=== PATIENT | female | born 1990 | race Caucasian/White ===

== ENCOUNTER 2019-03-10 11:48 | Day surgery (SDC) | payer OTHER ==
[2019-03-09 08:54] VITALS: BMI 29.1
[~2019-03-10 11:48] MED LIST: ceFAZolin IN SWFI 2 GM/20 ML SYRINGE IVP ONE
[2019-03-10] MEDS ORDERED: LACTATED RINGERS 1,000 ML IV ONE (12:26)
[2019-03-10] MEDS ORDERED: LIDOCAINE 1% 20 ML VIAL (10MG/ML) FOR IV START INTRADERMA ONE (12:26)
[2019-03-10] MEDS ORDERED: DEXAMETHASONE SOD PHOSPHATE 10 MG/ML 1 ML VIAL IV ONE (12:30)
[2019-03-10] MEDS: ONDANSETRON 4 MG/2 ML VIAL IVP ONE ×2 (12:30→15:52)
[2019-03-10] MEDS ORDERED: HYDROmorphone (PF) 1 MG/ML ONE (12:42)
[2019-03-10] MEDS ORDERED: MIDAZOLAM 2 MG/2 ML VIAL ONE (12:42)
[2019-03-10] MEDS ORDERED: fentaNYL (PF) 50 MCG/ML 2 ML AMP ONE (12:42)
[2019-03-10] MEDS ORDERED: LIDOCAINE 1% INJ 10MG/ML (20 ML MDV) ONE (12:42)
[2019-03-10] MEDS ORDERED: PROPOFOL 10 MG/ML 20 ML VIAL IV ONE (12:42)
[2019-03-10] MEDS ORDERED: BUPIVACAINE (PF) 0.5% 30 ML VIAL SQ ONE ×2 (13:08→14:27)
--- NOTE | 2019-03-10 14:51 | P.PCN ---
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
[2019-03-10 14:56] VITALS: TEMP 97.3
--- NOTE | 2019-03-10 14:59 | P.OP ---
Date of Procedure: 03/10/19 Preoperative Diagnosis: Hallux abductovalgus deformity with metatarsus primus varus Postoperative Diagnosis: Same Procedure(s) Performed: Modified Price Chan bunionectomy left foot with base wedge osteotomy and pin fixation left foot Anesthesia: AGUSTIN Surgeon: Renard Bolanos Operative Findings: Unremarkable Description of Procedure: On the date of surgery the patient was taken to the operating room placed on the operating table supine position where general anesthetic agents were utilized to achieve anesthesia The patient's left foot and ankle were then prepped and draped in the usual aseptic manner Patient's left ankle was then wrapped with web roll and an ankle tourniquet was placed above the malleoli of the patient's left ankle The patient's left foot and ankle were elevated and exsanguinated of blood utilizing an Esmarch bandage and after 2 minutes. A time the ankle tourniquet was inflated to approximately 275 mmHg At this time attention was directed to the dorsal aspect of the first metatarsal base and cuneiform joint, where an approximately 9 cm dorsolinear incision was made area the incision was deepened via sharp dissection down through the level subcutaneous tissue layers all neurovascular structures encountered were identified isolated and were retracted and any bleeding vessels were clamped electrocauterized dissection was then carried deep down to level Periosteal Structures Overlying the Base of the First Metatarsal These Were Incised in Line with the Shaft of the First Metatarsal Just Lateral to the Extensor Hallucis Longus Tendon Periosteal Structures Were Then Reflected Medially a Were Underscored and Retracted from the Underlying Bone Oscillating Bone Saw Was Then Used To Create a Base Osteotomy the [place] of the Base Was Directed Medially Base of the Wedge Was Directed Laterally As Widest Point the Base of the Wedge Measured 2-3 Mm the Encompass Wedge of Bone Was Removed in Total from the Surgical Site Care Was Taken to Make the Osteotomy As Perpendicular to the Weightbearing Surface As Possible. 2 Crossing 0.062 K Wires Were Then Used To Fixate the Osteotomy Attension Was Then Directed to the Distal More Aspect of the Incision Where Dissection Was Carried Deep down to Level Periosteal Structures Overlying the First Metatarsal Phalangeal Joint These Were Incised Utilizing an Inverted L Incision and Underscored and Retracted from the Underlying Bone Hyperostosis Present on the Medial Side of the First Metatarsal Head Was Then Resected Flush in Line with the Shaft of the First Metatarsal and Removed in Total from the Surgical Site the Parosteal Structures were Then Dissected Free from the Base of the Proximal Phalanx and Underscored and Retracted from the Underlying Bone Wedge Osteotomy Was Performed so That the Base of the Wedge Was Directed Laterally Though Care Was Taken Not to Disrupt the Lateral Cortex of Proximal Phalanx the Base of the Wedge Was Directed Medially the Encompass Wedge of Bone Was Removed from Total from the Surgical Site to Surgical Drill Holes Were Then Fashioned on Either Side of the Osteotomy in Such a Manner That They Met with Then the Osteotomy Was Then Fixated Utilizing Double Strength 28-gauge Monofilament Stainless Steel Wire. Her out the Surgical Procedure Copious Amounts Sterile Saline Solution Was Used To Irrigate the Surgical Site. Tendon Capsule Was Then Resected from the Medial Side of the First Metatarsal Phalangeal Joint and a Lateral Capsulotomy Was Performed. Dissecting down along the Lateral Side of the First Metatarsal Phalangeal Joint. And Opening the Lateral Side of the Joint and Completion of These Procedures the Hallux Was Seen to Maintain a Rectus Position Periosteal Structures Were Then Coaptated and Maintained Utilizing 3 2-0 Vicryl Simple Interrupted Suture. Subcutaneous Tissue Layers Were Coaptated and Maintained Utilizing 3-0 Vicryl Simple Interrupted Suture and the Skin Was Closed Utilizing 4-0 Nylon Continuous Locking Suture. Adaptic Kerlix Fluffs Four-Inch Conformer 4 Inch Coban Was Used To Form a Compression Dressing and the Ankle Tourniquet to the Patient's Right Ankle Was Deflated Adequate Hemostatic Return Was Seen in All Digits the Patient's Right Foot Specifically the Right Hallux The Patient Tolerated the Surgery and Anesthesia Well Was Taken Recovery Room in Good Postoperative Condition.
[2019-03-10 15:03] VITALS: RESP 16
[2019-03-10 16:06] VITALS: BP 92/60; PULSE 58
== END 2019-03-10 16:21 | disposition home or self-care (01) ==
LOC: OR 11:48
PROVIDERS: ATTEND Podiatrist Foot & Ankle Surgery
DX: M20.12 Hallux valgus (acquired), left foot (principal); M21.172 Varus deformity, not elsewhere classified, left ankle
CPT/HCPCS: 81025; 28299; C1713; J2250; J1100; J2405; J2001; J3010; J1170; J2704; J0690

== ENCOUNTER 2020-02-21 14:20 | Observation (INO) | payer OTHER ==
[2020-02-21] MEDS ORDERED: SODIUM CHLORIDE 0.9% 500 ML 500 ML IV ONE (14:25)
[2020-02-21] MEDS ORDERED: HYDROmorphone 0.5 MG/0.5 ML SYRINGE IVP STA ×2 (14:25→15:43)
--- NOTE | 2020-02-21 14:28 | ED ---
Back Pain HPI - General Stated Complaint: Back pain Time Seen by Provider: 02/21/20 14:25 - History of Present Illness Initial Comments: 29-year-old female presenting today for chief complaint of low back pain. Patient states she has had issues with her sciatic nerve in the past. Patient states that she was getting ready for work today. On her pants and she felt like she moved wrong she felt sudden onset of right-sided low back pain. Patient states at times it radiates down the right leg. Denies loss of bowel or bladder control, denies urinary retention. Patient denies weakness of the LE but states it is very pain in the low right side of back with movement of the right leg. Patient states that any movement significantly increases the pain. Patient denies fevers, IVDU, or history of cancer, Denies any recent trauma injury or falls. Patient has no other complaints at this time. Patient could no ambulate and thus called EMS. EMS has given IV analgesics prior to arrival. Patient cries out in pain when moved off stretcher. - Related Data Home Medications Medication Instructions Recorded Confirmed Naproxen Sodium [Aleve] 440 mg PO Q8H PRN 02/21/20 02/21/20 Allergies Allergy/AdvReac Type Severity Reaction Status Date / Time No Known Allergies Allergy Verified 02/21/20 17:12 Review of Systems ROS Statement: Those systems with pertinent positive or pertinent negative responses have been documented in the HPI. ROS Other: All systems not noted in ROS Statement are negative. Past Medical History Past Medical History: No Reported History History of Any Multi-Drug Resistant Organisms: None Reported Past Surgical History: Tubal Ligation Additional Past Surgical History / Comment(s): D&C-2010. Colonoscopy Past Anesthesia/Blood Transfusion Reactions: Postoperative Nausea & Vomiting (PONV) Smoking Status: Never smoker - Past Family History Mother Family Medical History: No Reported History General Exam - General Exam Comments Initial Comments: General: The patient is awake and alert Eye: Pupils are equal, round and reactive to light, extra-ocular movements are intact. No nystagmus. There is normal conjunctiva bilaterally. No signs of icterus. Ears, nose, mouth and throat: There are moist mucous membranes and no oral lesions. Neck: The neck is supple, there is no tenderness or JVD. Cardiovascular: There is a regular rate and rhythm. No murmur, rub or gallop is appreciated. Respiratory: Lungs are clear to auscultation, respirations are non-labored, breath sounds are equal. No wheezes, stridor, rales, or rhonchi. Gastrointestinal: Soft, non-distended, non-tender abdomen without masses or organomegaly noted. There is no rebound or guarding present. No CVA tenderness. Musculoskeletal: Normal inspection of the thoracic, and lumbar spine, hips and buttocks. Patient refused to full range at right LE secondary to pain, + SLR. STrength appears preserved, and plantar and dorsiflex wtih full strength. S ensation intact of the LE b/l including the saddle region, and perineal region. NII performed wtih nurse Marcela at beside--normal sphinctor tone. DP Pulses equal bilaterally 2+. +2/5 Achilles and patellar reflexes. Neurological: A&O x 3. CN II-XII intact grossly, There are no obvious motor or sensory deficits. Coordination appears grossly intact. Speech is normal. Skin: Skin is warm and dry and no rashes or lesions are noted. Psychiatric: Cooperative, crying Course Vital Signs 02/21/20 02/21/20 14:25 17:18 Temperature 98.8 F Pulse Rate 86 88 Respiratory 18 18 Rate Blood Pressure 141/93 136/70 O2 Sat by Pulse 99 99 Oximetry - Reevaluation(s) Reevaluation #1: Urinated without difficulty-- 02/21/20 Medical Decision Making - Medical Decision Making 29-year-old feel presented for chief complaint of low back pain after moving around. Patient states it feels like a spasm. Patient has positive straight leg raise. Patient denies IV drug use no fevers. No direct trauma. Patient has full strength with plantar and dorsal flexion, refuses to full range at hip and knee but states she thinks the limb feels strong it just hurts. Patient sensation in table equal b/l. Urinating without difficulty. Patient has no perineal numbness, normal rectal tone. Patient pain improved as well as movement/strength with medications, Patient states she will not ambulate secondary to pain and is concerned when going home as she already has issues ambulating secondary to her previous left ankle surgery/injury. Patient will be admitted for intractable pain as well as monitoring for any worsening of symptoms. No signs of cauda equina at this time. Patient case, exam findings, CT findings all reviewed and discussed wtih Dr. Richards who recommends admission, steroids and IV analgesics. Dr. Garcia accepted admission requesting MRI, and discussion with consulting orthopedic spine physician Dr. Gomez--I discussed case in detail with Dr Streeter who is agreeable to admission with nonurgent MRI and pain control. - Lab Data Result diagrams: 02/21/20 14:44 02/21/20 14:44 Lab Results 02/21/20 02/21/20 02/21/20 Range/Units 14:44 14:44 14:50 WBC 13.8 H (3.8-10.6) k/uL RBC 4.74 (3.80-5.40) m/uL Hgb 14.4 (11.4-16.0) gm/dL Hct 42.7 (34.0-46.0) % MCV 90.1 (80.0-100.0) fL MCH 30.3 (25.0-35.0) pg MCHC 33.6 (31.0-37.0) g/dL RDW 12.8 (11.5-15.5) % Plt Count 337 (150-450) k/uL Neutrophils % 91 % Lymphocytes % 6 % Monocytes % 2 % Eosinophils % 0 % Basophils % 0 % Neutrophils # 12.6 H (1.3-7.7) k/uL Lymphocytes # 0.8 L (1.0-4.8) k/uL Monocytes # 0.3 (0-1.0) k/uL Eosinophils # 0.1 (0-0.7) k/uL Basophils # 0.0 (0-0.2) k/uL Sodium 137 (137-145) mmol/L Potassium 4.3 (3.5-5.1) mmol/L Chloride 103 (98-107) mmol/L Carbon Dioxide 25 (22-30) mmol/L Anion Gap 9 mmol/L BUN 14 (7-17) mg/dL Creatinine 0.52 (0.52-1.04) mg/dL Est GFR (CKD-EPI)AfAm >90 (>60 ml/min/1.73 sqM) Est GFR (CKD-EPI)NonAf >90 (>60 ml/min/1.73 sqM) Glucose 120 H (74-99) mg/dL Calcium 9.3 (8.4-10.2) mg/dL Total Bilirubin 0.5 (0.2-1.3) mg/dL AST 24 (14-36) U/L ALT 16 (4-34) U/L Alkaline Phosphatase 83 (38-126) U/L C-Reactive Protein 8.3 (<10.0) mg/L Total Protein 7.8 (6.3-8.2) g/dL Albumin 4.5 (3.5-5.0) g/dL Urine Color Light Yellow Urine Appearance Clear (Clear) Urine pH 7.0 (5.0-8.0) Ur Specific [place] 1.015 (1.001-1.035) Urine Protein Negative (Negative) Urine Glucose (UA) Negative (Negative) Urine Ketones Negative (Negative) Urine Blood Negative (Negative) Urine Nitrite Negative (Negative) Urine Bilirubin Negative (Negative) Urine Urobilinogen <2.0 (<2.0) mg/dL Ur Leukocyte Esterase Negative (Negative) Urine HCG, Qual (Not Detectd) 02/21/20 Range/Units 14:50 WBC (3.8-10.6) k/uL RBC (3.80-5.40) m/uL Hgb (11.4-16.0) gm/dL Hct (34.0-46.0) % MCV (80.0-100.0) fL MCH (25.0-35.0) pg MCHC (31.0-37.0) g/dL RDW (11.5-15.5) % Plt Count (150-450) k/uL Neutrophils % % Lymphocytes % % Monocytes % % Eosinophils % % Basophils % % Neutrophils # (1.3-7.7) k/uL Lymphocytes # (1.0-4.8) k/uL Monocytes # (0-1.0) k/uL Eosinophils # (0-0.7) k/uL Basophils # (0-0.2) k/uL Sodium (137-145) mmol/L Potassium (3.5-5.1) mmol/L Chloride (98-107) mmol/L Carbon Dioxide (22-30) mmol/L Anion Gap mmol/L BUN (7-17) mg/dL Creatinine (0.52-1.04) mg/dL Est GFR (CKD-EPI)AfAm (>60 ml/min/1.73 sqM) Est GFR (CKD-EPI)NonAf (>60 ml/min/1.73 sqM) Glucose (74-99) mg/dL Calcium (8.4-10.2) mg/dL Total Bilirubin (0.2-1.3) mg/dL AST (14-36) U/L ALT (4-34) U/L Alkaline Phosphatase (38-126) U/L C-Reactive Protein (<10.0) mg/L Total Protein (6.3-8.2) g/dL Albumin (3.5-5.0) g/dL Urine Color Urine Appearance (Clear) Urine pH (5.0-8.0) Ur Specific [place] (1.001-1.035) Urine Protein (Negative) Urine Glucose (UA) (Negative) Urine Ketones (Negative) Urine Blood (Negative) Urine Nitrite (Negative) Urine Bilirubin (Negative) Urine Urobilinogen (<2.0) mg/dL Ur Leukocyte Esterase (Negative) Urine HCG, Qual Not Detected (Not Detectd) Disposition Clinical Impression: Low back pain, Gall stone, Intractable back pain Disposition: ADMITTED IP TO THIS [facility] Condition: Stable Is patient prescribed a controlled substance at d/c from ED?: No Referrals: Enrique Queen MD [Primary Care Provider] - 1-2 days Time of Disposition: 16:59 Decision to Admit Reason: Admit from EC Decision Date: 02/21/20 Decision Time: 16:59
[2020-02-21 15:03] LABS: Basophils % (A) 0 %; Eosinophils # (A) 0.1 k/uL (0-0.7); Eosinophils % (A) 0 %; HCT 42.7 % (34.0-46.0); HGB 14.4 gm/dL (11.4-16.0); Lymphocytes # (A) 0.8 k/uL (1.0-4.8); Lymphocytes % (A) 6 %; MCH 30.3 pg (25.0-35.0); MCHC 33.6 g/dL (31.0-37.0); MCV 90.1 fL (80.0-100.0); Mean Platelet Volume 7.7; Monocytes # (A) 0.3 k/uL (0-1.0); Monocytes % (A) 2 %; Neutrophils # (A) 12.6 k/uL (1.3-7.7); Neutrophils % (A) 91 %; Platelet Count 337 k/uL (150-450); RBC 4.74 m/uL (3.80-5.40); RDW 12.8 % (11.5-15.5); WBC 13.8 k/uL (3.8-10.6)
[2020-02-21 15:04] LABS: Appearance,Urine Clear (Clear); Bilirubin,Urine Negative (Negative); Blood,Urine Negative (Negative); Color,Urine Light Yellow; Glucose,Urine (UA) Negative (Negative); Ketones,Urine Negative (Negative); Leukocyte Esterase,Urine Negative (Negative); Nitrite,Urine Negative (Negative); Protein,Urine Negative (Negative); Specific Gravity,Urine 1.015 (1.001-1.035); Urobilinogen,Urine <2.0 mg/dL (<2.0)
[2020-02-21 15:17] LABS: ALT 16 U/L (4-34); AST 24 U/L (14-36); African American GFR (CKD) >90 (>60 ml/min/1.73 sqM); Albumin 4.5 g/dL (3.5-5.0); Alkaline Phosphatase 83 U/L (38-126); Anion Gap 9 mmol/L; Blood Urea Nitrogen 14 mg/dL (7-17); C Reactive Protein 8.3 mg/L (<10.0); Calcium 9.3 mg/dL (8.4-10.2); Carbon Dioxide 25 mmol/L (22-30); Chloride 103 mmol/L (98-107); Glucose 120 mg/dL (74-99); Non-African American GFR(CKD) >90 (>60 ml/min/1.73 sqM); Potassium 4.3 mmol/L (3.5-5.1); Sodium 137 mmol/L (137-145); Total Bilirubin 0.5 mg/dL (0.2-1.3); Total Protein 7.8 g/dL (6.3-8.2)
--- NOTE | 2020-02-21 15:28 | CT ---
EXAMINATION TYPE: CT lumbar spine wo con DATE OF EXAM: 02/21/2020 3:21 PM COMPARISON: None. HISTORY: low back pain with no injury CT DLP: 925.4 mGycm Automated exposure control for dose reduction was used. Unenhanced CT of the lumbar spine was performed. Bone and soft tissue window settings are submitted as well as coronal and sagittal reconstructions. There are 5 lumbar type vertebra identified. Mild to moderate disc space narrowing L4-L5 level is pre sent. Vertebral body heights and disc space heights otherwise fairly well maintained. No acute fractu re or dislocation is seen. Posterior disc herniations noted at L2-L3 through L5-S1 levels on sagittal image 27. Bilateral pars defect L5 level without spondylolisthesis. Review of axial images confirm central disc protrusion effacing anterior thecal sac at L2-L3 level ax ial image 40. Axial images at L3-L4 levels show mild broad disc bulge mildly effacing the anterior thecal sac on ax ial image 53. Axial images at L4-L5 level show mild facet degenerative changes bilaterally with central disc protru leida mildly facing anterior thecal sac, bilateral neural foramina are patent. Axial images at L5-S1 level show mild facet arthropathy and bilateral pars defect but spinal canal pr eserved. Neural foramina remain patent. Paraspinal muscle bulk is maintained. There is 2 cm gallstone in gallbladder neck axial image 13. 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 Multilevel degenerative changes mid to lower lumbar spine as detailed above. Note is made of 2.0 cm gallstone in gallbladder neck .
[2020-02-21] MEDS ORDERED: KETOROLAC 30 MG/ML 1 ML VIAL IVP STA (15:44)
[2020-02-21] MEDS ORDERED: DEXAMETHASONE SOD PHOSPHATE 4 MG/ML 1 ML VIAL IV STA (15:45)
[2020-02-21] MEDS ORDERED: ONDANSETRON 4 MG/2 ML VIAL IVP STA (16:12)
[2020-02-21] MEDS ORDERED: CYCLOBENZAPRINE 5 MG TAB PO STA (16:59)
[2020-02-21] MEDS ORDERED: NALOXONE 0.4 MG/ML 1 ML VIAL IV PRN (17:39)
[2020-02-21] MEDS: HYDROmorphone 0.5 MG/0.5 ML SYRINGE IVP PRN (22:20)
[2020-02-22] MEDS: HYDROmorphone 0.5 MG/0.5 ML SYRINGE IVP PRN ×2 (03:27→12:33)
--- NOTE | 2020-02-22 11:18 | MR ---
EXAMINATION TYPE: MR lumbar spine wo con DATE OF EXAM: 02/22/2020 COMPARISON: CT lumbar spine from yesterday. HISTORY: Right sided Lower Back Pain, Goes into Right Leg. Ambulating aggravates it. TECHNIQUE: Multiplanar, multisequence imaging of the lumbar spine is performed without IV contrast. FINDINGS: Sagittal images of the lumbar spine show vertebral body heights and alignment to remain sat isfactory. Multilevel disc desiccation L2-L3 through the L5-S1 levels. There is moderate disc space n arrowing L4-L5 level with posterior annular tear. The conus medullaris is normal in position and sign al ending mid L1 level. The bone marrow signal intensity is within normal limits. Bilateral pars def ect L5 level seen better on CT versus MRI. Axial images show the T12-L1 and L1-L2 levels. Axial images at L2-L3 level show focal broad-based right paracentral disc protrusion effacing the ant erolateral thecal sac axial image 19, bilateral neural foramina are patent. Axial images at L3-L4 level broad-based central disc protrusion effacing anterior thecal sac seen bes t on axial image 13, bilateral neural foramina are patent. Axial images at L4-L5 levels are broad-based left central disc protrusion and annular tear effacing t he anterior thecal sac, bilateral neural foramina remain patent. Mild facet arthropathy bilaterally r edemonstrated. Axial images at L5-S1 level redemonstrated mild facet degenerative changes bilaterally with central d isc protrusion minimally effacing anterior thecal sac, bilateral neural foramina remain patent. Paraspinal muscle bulk preserved. Redemonstration of 2.0 cm gallstone in gallbladder neck axial image 30. IMPRESSION: Multilevel degenerative changes in the mid to lower lumbar spine as detailed above. Multi level disc herniations are seen but no definitive right-sided nerve encroachment identified to accoun t for patient's right-sided radiculopathy type symptoms
--- NOTE | 2020-02-22 11:54 | XR ---
EXAMINATION TYPE: XR lumbar spine with bend/flex DATE OF EXAM: 02/22/2020 COMPARISON: MRI lumbar spine 02/22/2020, CT 02/21/2020 HISTORY: Low back pain TECHNIQUE: Five-view lumbar spine supplemented with flexion and extension views. FINDINGS: There 5 lumbar-type vertebral bodies. Pedicles are intact. Disc heights are preserved. Vert ebral body heights are preserved. Facets appear normal. There is suggestion of L5 spondylolysis. This is evident on the CT lumbar spine 02/21/2020 Flexion and extension appears limited. No alignment change is evident between vertebral segments. IMPRESSION: 1. No significant alignment change of vertebral bodies with flexion and extension. 2. Spondylolysis of L5.
[2020-02-22] MEDS ORDERED: NAPROXEN 250 MG TAB PO STA (13:58)
[2020-02-22] MEDS: predniSONE 20 MG TAB PO SCH (14:18)
[2020-02-22] MEDS: BACLOFEN 10 MG TAB PO SCH ×3 (14:20→22:11)
--- NOTE | 2020-02-22 14:52 | P.CNOR ---
History of Present Illness - HPI Consult date: 02/22/20 Consult reason: low back pain History of present illness: Patient has been having severe low back pain since yesterday. She was bending over and putting on her pants when she felt a sudden sharp stabbing pain in her low back and tingling down her right leg. 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 She says she has not had any specific back pain in the past however she did have her back when she was with her daughter 8 years ago. She is not having problems with her back since then. She denies any specific weakness in her lower extr emities. She says she has significant pain when she tries to get up and feels like her back is crunching down. She denies any change in bowel bladder function. She denies note weakness. She has pain which prevents her from moving. Review of Systems As stated per HPI. No change in bowel bladder function. No reported weakness in her lower extremity. No recent fevers chills. Past Medical History Past Medical History: No Reported History, Musculoskeletal Disorder Additional Past Medical History / Comment(s): Patient had bunionectomy in March of last year History of Any Multi-Drug Resistant Organisms: None Reported Past Surgical History: Tubal Ligation Additional Past Surgical History / Comment(s): D&C-2010 after septicemia post- . Colonoscopy Past Anesthesia/Blood Transfusion Reactions: No Reported Reaction, Postoperative Nausea & Vomiting (PONV) Additional Past Anesthesia/Blood Transfusion Reaction / Comm: Patient believes she had transfusion after post- bleeding Past Psychological History: No Psychological Hx Reported Smoking Status: Never smoker Past Alcohol Use History: Occasional Past Drug Use History: None Reported - Past Family History Mother Family Medical History: No Reported History Medications and Allergies Home Medications Medication Instructions Recorded Confirmed Type Naproxen Sodium [Aleve] 440 mg PO Q8H PRN 02/21/20 02/21/20 History Famotidine [Pepcid] 20 mg PO DAILY #12 tablet 02/22/20 Rx predniSONE 10 mg PO DIRECTED #24 tab 02/22/20 Rx Allergies Allergy/AdvReac Type Severity Reaction Status Date / Time No Known Allergies Allergy Verified 02/21/20 17:12 Physical Examination Osteopathic Statement: *. No significant issues noted on an osteopathic structural exam other than those noted in the History and Physical/Consult. - L Spine: dermatomal strength & reflexes bilateral Strength: hip flexion: 5/5 (Have low back patient has significant spasm in her lumbar spine. She has pain when she tries to mobilize. She has able to lift her legs up off the bed independently with 5 out of 5 muscle strength with hip flexion and extension. She is 5 out of 5 strength at dorsiflexion plantar flexion and EHL. Abdomen soft. Neck is nontender to palpation range motion.) Results - Labs Labs: Abnormal Lab Results - Last 24 Hours (Table) 02/21/20 02/21/20 Range/Units 14:44 14:44 WBC 13.8 H (3.8-10.6) k/uL Neutrophils # 12.6 H (1.3-7.7) k/uL Lymphocytes # 0.8 L (1.0-4.8) k/uL Glucose 120 H (74-99) mg/dL H & H 02/21/20 Range/Units 14:44 Hgb 14.4 (11.4-16.0) gm/dL Hct 42.7 (34.0-46.0) % Result Diagrams: 02/21/20 14:44 02/21/20 14:44 - Diagnostic results Lumbar MRI with contrast: report reviewed, image reviewed (Patient x-rays and MRI reviewed of her lumbar spine. There may be a slight suggestion of spinal lysis at L5. This is not seen on the MRI. There is some mild disc degeneration L3 4 L4 5 L5-S1 there may be small annular fissure and L5-S1. There is no evidence of any instability. There is no significant herniation or significant neural compression noted.) Assessment and Plan Assessment: Acute myofascial strain lumbar spine Incapacitating low back pain Likely annular fissure L5-S1 Right lower extremity radiculopathy without neurologic loss Plan: Acute myofascial strain lumbar spine Incapacitating low back pain Likely annular fissure L5-S1 Right lower extremity radiculopathy without neurologic loss The patient has acute low back pain which is bending to passing for her. She feels she may is made some progress with medication here in Hospital. She is not having any acute neurologic loss and I do not think that she is a candidate for any surgical intervention at this point. The patient likely sustained an annular fissure at L5-S1 as a source of her symptoms. This should do well with conservative measures. However the pain is quite incapacitating for her and will require active medical management and treatment. She has received medications in hospital which are appropriate. I think she can go home with oral tapering steroid dose as well as muscle rela xants and pain control. I think that she needs to alter her activity and should be off work for until she follows up with our office in 7-10 days. I discussed this with her and answered her questions. It is okay for her to mobilize and ambulate lightly however she should avoid heavy heavy or rigorous activity. From an orthopedic spine standpoint it is okay for her to be discharged when she is stable from medical adjuvant. Time with Patient: Less than 30
[2020-02-22] MEDS: FAMOTIDINE 20 MG TAB PO SCH (14:59)
--- NOTE | 2020-02-22 15:21 | P.HPIM ---
History of Present Illness H&P Date: 02/22/20 Chief Complaint: Acute low back pain History of presenting complaint: This is a very pleasant 49-year-old patient of Dr. Queen. Normally in good health. Yesterday morning around 7 in the morning she was putting on her pants when she notices severe pain in the lower back and then down to the right leg. And she could not weight-bear on the right leg. Patient having severe pain since then and spasms. No fever no chills. And admitted for the same. Orthopedics was consulted. He had a similar episode about 8 years ago but of much lesser severity. Patient laying in bed with pain medicines. Slight nausea. No fever no chills no headaches. No other symptoms. No involvement of bladder the bowel. 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 Alcohol occasionally. Lives with her 's children. Physical examination: VITAL SIGNS: 98.8, 86, 18, 141/93, 99% on room air GENERAL: BMI 28.3, laying in bed awake. EYES: Pupils equal. Conjunctiva normal. HEENT: External appearance of nose and ears normal, oral cavity grossly normal. NECK: JVD not raised; masses not palpable. HEART: First and second heart sounds are normal; no edema. LUNGS: Respiratory rate normal; clear to auscultation. ABDOMEN: Soft, nontender, liver spleen not palpable, no masses palpable. PSYCH: Alert and oriented x3; mood and affect normal MUSCULOSKELETAL: Able to raise both the right and the left like about 20 the patient instructed producible in the lower back.. NEUROLOGICAL: Cranial nerves grossly intact; no facial asymmetry, power and sensation grossly intact. LYMPHATICS: No lymph nodes palpable in the axilla and neck INVESTIGATIONS, reviewed in the clinical context: White count 13.8 hemoglobin 40.4 platelets 377, potassium 4.3 creatinine 0.5 to CRP 8.3 COVID-19 PCR-not detected Lumbar spine computed tomography scan-multiple levels arthritic changes though mild with some disc narrowing at L4-L5 level some posterior disc herniation from L2-3 S1. Lumbar spine MRI-multiple disc herniation levels with no obvious right nerve encroachment Assessment: -Patient presented acute onset of low back pain showing multiple level mild DJD disc narrowing and some disc herniation. Most likely acute disc herniation at L5-S1 level with pain down the right leg. Over 90% of these are self-limiting. And improved with conservative management. -Leukocytosis-reactive Plan: Orthopedics was consulted. Start the patient on anti-inflammatory in follow-up naproxen, antispasmodic in the form of baclofen and also oral steroids. Care was discussed with the patient question were answered. Encouraged to be out of bed and ambulate as tolerated. Questions were answered. Past Medical History Past Medical History: No Reported History History of Any Multi-Drug Resistant Organisms: None Reported Past Surgical History: Tubal Ligation Additional Past Surgical History / Comment(s): D&C-2010 after septicemia post- . Colonoscopy Past Anesthesia/Blood Transfusion Reactions: No Reported Reaction, Postoperative Nausea & Vomiting (PONV) Additional Past Anesthesia/Blood Transfusion Reaction / Comment(s): Patient believes she had transfusion after post- bleeding Past Psychological History: No Psychological Hx Reported Smoking Status: Never smoker Past Alcohol Use History: Occasional Past Drug Use History: None Reported - Past Family History Mother Family Medical History: No Reported History Medications and Allergies Home Medications Medication Instructions Recorded Confirmed Type Naproxen Sodium [Aleve] 440 mg PO Q8H PRN 02/21/20 02/21/20 History Cyclobenzaprine [Flexeril] 10 mg PO TID PRN #60 tab 02/22/20 Rx Famotidine [Pepcid] 20 mg PO DAILY #12 tablet 02/22/20 Rx predniSONE 10 mg PO DIRECTED #24 tab 02/22/20 Rx traMADol HCl [Ultram] 50 mg PO Q6HR PRN 3 Days #12 tab 02/22/20 Rx Allergies Allergy/AdvReac Type Severity Reaction Status Date / Time No Known Allergies Allergy Verified 02/21/20 17:12 Physical Exam Vitals: Vital Signs Temp Pulse Pulse Resp BP BP Pulse Ox 02/22/20 05:09 97.6 F 74 16 99/62 94 L 02/22/20 00:00 18 02/21/20 22:16 98.6 F 65 18 112/69 94 L 02/21/20 21:44 98.0 F 86 16 129/70 99 02/21/20 17:18 88 18 136/70 99 02/21/20 14:25 98.8 F 86 18 141/93 99 Intake and Output 02/21/20 02/22/20 02/22/20 22:59 06:59 14:59 Intake Total 250 450 Output Total 11 Balance 250 450 -11 Intake: Oral 250 450 Output: Post Void Residual 11 Other: Voiding Method Toilet # Voids 0 # Bowel Movements 0 Weight 77.111 kg Results CBC & Chem 7: 02/21/20 14:44 02/21/20 14:44 Labs: Abnormal Lab Results - Last 24 Hours (Table) 02/21/20 02/21/20 Range/Units 14:44 14:44 WBC 13.8 H (3.8-10.6) k/uL Neutrophils # 12.6 H (1.3-7.7) k/uL Lymphocytes # 0.8 L (1.0-4.8) k/uL Glucose 120 H (74-99) mg/dL Thrombosis Risk Factor Assmnt - Choose All That Apply Any of the Below Risk Factors Present?: Yes Each Factor Represents 1 point: Obesity (BMI >25) Other Risk Factors: No Other congenital or acquired thrombophilia - If yes, enter type in comment: No Thrombosis Risk Factor Assessment Total Risk Factor Score: 1 Thrombosis Risk Factor Assessment Level: Low Risk
[2020-02-22] MEDS: NAPROXEN 250 MG TAB PO SCH (22:11)
[2020-02-23 08:40] VITALS: BP 94/59; PULSE 66; RESP 18; TEMP 98.2
[2020-02-23] MEDS: NAPROXEN 250 MG TAB PO SCH (08:58)
[2020-02-23] MEDS: predniSONE 20 MG TAB PO SCH (08:59)
[2020-02-23] MEDS: BACLOFEN 10 MG TAB PO SCH (09:00)
[2020-02-23] MEDS: FAMOTIDINE 20 MG TAB PO SCH (09:00)
--- NOTE | 2020-02-23 22:52 | P.DS ---
Providers Date of admission: 02/21/20 17:46 Expected date of discharge: 02/23/20 Attending physician: Moises Garcia Consults: 02/21/20 17:42 Consult Physician Stat Consulting Provider: Og Gomez Consult Reason/Comments: low back pain Do you want consulting provider notified?: Already Contacted Primary care physician: Enrique [facility] Course: Chief Complaint: Acute low back pain History of presenting complaint: This is a very pleasant 49-year-old patient of Dr. Queen. Normally in good health. Yesterday morning around 7 in the morning she was putting on her pants when she notices severe pain in the lower back and then down to the right leg. And she could not weight-bear on the right leg. Patient having severe pain since then and spasms. No fever no chills. And admitted for the same. Orthopedics was consulted. He had a similar episode about 8 years ago but of much lesser severity. Patient laying in bed with pain medicines. Slight nausea. No fever no chills no headaches. No other symptoms. No involvement of bladder the bowel. Today-patient's MRI results were discussed including the L5-S1 disc condition suspected causing acute symptoms. Did discuss that to expect possible problems down the road. She'll follow-up with Dr. Gomez as an outpatient. Patient's pain is much better with the cocktail of antispasmodic anti-inflammatory. Patient is ready to go home. Patient to return to work following Friday. Patient is being out of bed. Discussion and discharge planning more than 35 minutes Consultation: [facility]. [facility] Physical examination: VITAL SIGNS: 98.2, 66, 18, 94/59, 95% on room air GENERAL: BMI 28.3, laying in bed, more comfortable EYES: Pupils equal. Conjunctiva normal. HEENT: External appearance of nose and ears normal, oral cavity grossly normal. NECK: JVD not raised; masses not palpable. HEART: First and second heart sounds are normal; no edema. LUNGS: Respiratory rate normal; clear to auscultation. ABDOMEN: Soft, nontender, liver spleen not palpable, no masses palpable. PSYCH: Alert and oriented x3; mood and affect normal INVESTIGATIONS, reviewed in the clinical context: White count 13.8 hemoglobin 40.4 platelets 377, potassium 4.3 creatinine 0.5 to CRP 8.3 COVID-19 PCR-not detected Lumbar spine computed tomography scan-multiple levels arthritic changes though mild with some disc narrowing at L4-L5 level some posterior disc herniation from L2-3 S1. Lumbar spine MRI-multiple disc herniation levels with no obvious right nerve encroachment Assessment: -likely acute disc herniation at L5-S1 level with pain down the right leg. POA -Multiple level DJD and thoraco- lumbar spine -Leukocytosis-reactive Disposition: Home Patient Condition at Discharge: Stable Plan - Discharge Summary New Discharge Prescriptions: New Famotidine [Pepcid] 20 mg PO DAILY #12 tablet predniSONE 10 mg PO DIRECTED #24 tab Cyclobenzaprine [Flexeril] 10 mg PO TID PRN #60 tab PRN Reason: Spasms traMADol HCl [Ultram] 50 mg PO Q6HR PRN 3 Days #12 tab PRN Reason: Pain Famotidine [Pepcid] 20 mg PO BID #30 tab Changed Naproxen Sodium [Aleve] 220 mg PO BID 7 Days #0 Discharge Medication List Cyclobenzaprine [Flexeril] 10 mg PO TID PRN #60 tab 02/22/20 [Rx] Famotidine [Pepcid] 20 mg PO DAILY #12 tablet 02/22/20 [Rx] predniSONE 10 mg PO DIRECTED #24 tab 02/22/20 [Rx] traMADol HCl [Ultram] 50 mg PO Q6HR PRN 3 Days #12 tab 02/22/20 [Rx] Famotidine [Pepcid] 20 mg PO BID #30 tab 02/23/20 [Rx] Naproxen Sodium [Aleve] 220 mg PO BID 7 Days #0 02/23/20 [Rx] Follow up Appointment(s)/Referral(s): Og Gomez DO [Doctor of Osteopathic Medicine] - 03/03/20 8:30 am Enrique Queen MD [Primary Care Provider] - 1-2 days Activity/Diet/Wound Care/Special Instructions: May ambulate as tolerated. No heavy or rigorous activity. No overhead lifting. Must sit and stand at will. Patient should be off work until follow-up with Dr. Gomez. Discharge/Stand Alone Forms: Work/School Release / Restrict
== END 2020-02-23 12:30 | disposition home or self-care (01) ==
LOC: EC 14:20 → 5NMEDONC 17:46 → 6PED 02-22 11:20
PROVIDERS: ADMIT Hospitalist; ATTEND Hospitalist
DX: M54.5 Low back pain (principal); Z03.818 Encounter for observation for suspected exposure to other biological agents ruled out; D72.829 Elevated white blood cell count, unspecified; K80.20 Calculus of gallbladder without cholecystitis without obstruction; M47.24 Other spondylosis with radiculopathy, thoracic region; M47.27 Other spondylosis with radiculopathy, lumbosacral region; S39.012A Strain of muscle, fascia and tendon of lower back, initial encounter
CPT/HCPCS: 96376 ×3; 96361 ×3; 96374; 96375; 99284; 36415; 80053; 85025; 86140; 81003; 81025; 87040; 87635; 72114; 72131; 72148; G0378 ×3; J1100; J2405; J1885; J7512 ×2; J1170 ×2; 96360

== ENCOUNTER → 2023-08-29 | Outpatient (CLI) | payer BC ==
--- NOTE | 2023-08-29 08:55 | US ---
EXAMINATION TYPE: US abdomen complete DATE OF EXAM: 08/29/2023 COMPARISON: NONE CLINICAL INDICATION: Female, 32 years old with history of R10.11 ABD PAIN R UP QUAD; pain and nausea TECHNIQUE: Multiple sonographic images of the abdomen are obtained. FINDINGS: EXAM MEASUREMENTS: Liver Length: 16.4 cm Gallbladder Wall: .3 cm CBD: .5 cm Spleen: 11.7 cm Right Kidney: 12.6 x 3.3 x 4.1 cm Left Kidney: 11.2 x 3.7 x 4.9 cm CHEMICAL ENGRAVER NOTES: Pancreas: Tail obscured by overlying bowel gas Liver: wnl Gallbladder: multiple stones seen Evidence for sonographic Mayen's sign: No CBD: wnl Spleen: wnl Right Kidney: No hydronephrosis or masses seen Left Kidney: No hydronephrosis or masses seen Upper IVC: wnl Abd Aorta: wnl The liver is homogenous. The intrahepatic portion of the IVC and proximal abdominal aorta are within normal limits. There is no evidence of cholelithiasis. Common bile duct is unremarkable. The visu alized portions of the pancreas are homogenous. The spleen is unremarkable. Kidneys are symmetric a nd free of hydronephrosis. No renal lesions are seen. IMPRESSION: 1. Cholelithiasis. 2. No evidence for acute process otherwise.
== END | disposition home or self-care (01) ==
LOC: RADUSWWP 08:21
PROVIDERS: ATTEND Pediatrics
DX: K80.20 Calculus of gallbladder without cholecystitis without obstruction (principal)
CPT/HCPCS: 76700

== ENCOUNTER → 2023-09-25 | Outpatient (CLI) | payer BC ==
--- NOTE | 2023-09-25 10:16 | NM ---
Nuclear medicine hepatobiliary scan. HISTORY: Pain. DOSAGE: The patient received 4.6 mCi of Technetium 99m Choletec. FINDINGS: There is normal hepatic extraction. The gallbladder is seen by 20 minutes. There is bilia ry to bowel clearance by 50 minutes. IMPRESSION: 1. Normal hepatobiliary exam
== END | disposition home or self-care (01) ==
LOC: RADNMMAIN 07:14
PROVIDERS: ATTEND Pediatrics
DX: K80.20 Calculus of gallbladder without cholecystitis without obstruction (principal)
CPT/HCPCS: 78226; A9537

== ENCOUNTER 2023-10-14 07:12 | Day surgery (SDC) | payer BC ==
[~2023-10-14 07:12] MED LIST changes: +ACETAMINOPHEN TAB 500 MG TAB PO PRN; +DEXAMETHASONE SOD PHOSPHATE 4 MG/ML 1 ML VIAL IV ONE; +HEPARIN SODIUM,PORCINE 5,000 UNIT/ML 1 ML VIAL SQ PRN; +HYDROmorphone 0.5 MG/0.5 ML SYRINGE IVP PRN; +LACTATED RINGERS 1,000 ML IV SCH; +ONDANSETRON 4 MG/2 ML VIAL IVP ONE; -ceFAZolin IN SWFI 2 GM/20 ML SYRINGE IVP ONE
[2023-10-14] MEDS ORDERED: FAMOTIDINE 20 MG/2 ML VIAL IVP ONE (08:37)
[2023-10-14] MEDS ORDERED: KETOROLAC 15 MG/ML 1 ML VIAL ONE (08:50)
[2023-10-14] MEDS ORDERED: fentaNYL (PF) 50 MCG/ML 2 ML AMP ONE (08:50)
[2023-10-14] MEDS ORDERED: GLYCOPYRROLATE 0.2 MG/ML 2 ML VIAL ONE (08:50)
[2023-10-14] MEDS ORDERED: NEOSTIGMINE 1 MG/ML 10 ML VIAL ONE (08:50)
[2023-10-14] MEDS ORDERED: SUCCINYLCHOLINE CHLORIDE 200 MG/10 ML VIAL IV ONE (08:50)
[2023-10-14] MEDS ORDERED: MIDAZOLAM 2 MG/2 ML VIAL ONE (08:50)
[2023-10-14] MEDS ORDERED: PROPOFOL 10 MG/ML 20 ML VIAL IV ONE (08:50)
[2023-10-14] MEDS ORDERED: BUPIVACAINE (PF) 0.25% 30 ML VIAL SQ ONE (09:19)
[2023-10-14] MEDS ORDERED: LACTATED RINGERS 1,000 ML IV ONE (09:21)
[2023-10-14 10:13] VITALS: RESP 16; TEMP 97.3
--- NOTE | 2023-10-14 11:01 | P.OP ---
Date of Procedure: 10/14/23 Preoperative Diagnosis: Cholelithiasis Postoperative Diagnosis: Cholelithiasis Procedure(s) Performed: Laparoscopic cholecystectomy Anesthesia: AGUSTIN Surgeon: Anselmo Kang Pathology: other (Gallbladder) Condition: stable Disposition: PACU Description of Procedure: The patient was placed on the operating table. The patient received a general endotracheal tube anesthesia. The patients abdomen was prepped and draped in the usual sterile fashion. Through an infraumbilical stab incision, the fascia of the anterior abdominal wall was grasped with a pair of Kochers and then the Veress needle was placed in the peritoneal cavity. Position of the Veress needle was confirmed with positive drop test. The abdomen was then insufflated. After adequate insufflation, the 10 mm trocar was placed in the peritoneal cavity. Following this the laparoscope was placed in the peritoneal cavity. The patient was placed in the head-up, right side up position and then a 5 mm trocar was placed in the right lateral and right subcostal position under direct visualization. A 8 mm trocar was placed in the epigastric position. The gallbladder was grasped in the fundus and infundibulum. Traction on the gallbladder was placed in the lateral and the cephalad positions. The triangle of Calot was visualized.. The cystic duct was bluntly dissected until the union of the cystic duct and common bile duct was seen. A critical view of safety was achieved. The cystic duct was then divided and sealed with the Harmonic scissors. A PDS Endoloop was then placed throughout the cystic duct stump. The cystic artery divided and sealed with the Harmonic scissors. The gallbladder was then removed from the liver bed using Harmonic scissors. The gallbladder was then extracted through the epigastric port site. Operative field was checked for any bleeding spots and Harmonic scissors was used to coagulate the liver bed. The abdomen was irrigated. The trocars were removed. The skin was closed using interrupted 3-0 Vicryl suture. Dermabond dressing were applied. The patient tolerated the procedure well.
[2023-10-14] MEDS ORDERED: ONDANSETRON ODT 4 MG TAB PO ONE (11:40)
[2023-10-14 12:15] VITALS: BP 103/68; PULSE 59
== END 2023-10-14 12:09 | disposition home or self-care (01) ==
LOC: OR 07:12
PROVIDERS: ATTEND Surgery
DX: K80.10 Calculus of gallbladder with chronic cholecystitis without obstruction (principal); K21.9 Gastro-esophageal reflux disease without esophagitis; Z79.899 Other long term (current) drug therapy
CPT/HCPCS: 81025; 88304; 47562; J2250; J0330; J1644; J1100; J2710; J0690; J2405; J3010; J3490; J1885; J2704; J0665